=== PATIENT | female | born 1975 | race Caucasian/White ===

== ENCOUNTER 2018-11-20 17:49 | Emergency (ER) | payer BC ==
[2018-11-20 20:32] VITALS: BP 144/84
--- NOTE | 2018-11-20 20:35 | UC ---
Abdominal Pain Female HPI - HPI Summary HPI Summary: Pt with urinary frequency, urgency and dysuria starting yesterday, but progressive since midafternoon. no fever, chills. no back pain No n/v. No vaginal discharge, itch, odor. Pt took pyridium [employer] with start of improvement no apap, motrin not medications reviewed - History of Current Complaint Chief Complaint: UCGU Stated Complaint: URINARY COMPLAINT Time Seen by Provider: 11/20/18 20:27 Hx Obtained From: Patient Hx Last Menstrual Period: current ?: No Onset/Duration: Gradual Onset Pain Intensity: 5 Allergies/Adverse Reactions: Allergies Allergy/AdvReac Type Severity Reaction Status Date / Time No Known Allergies Allergy Verified 11/20/18 20:31 Home Medications: Home Medications Phenazopyridine TAB* [Pyridium 100 mg TAB*] 100 mg PO TID 11/20/18 [History Confirmed 11/20/18] PMH/Surg Hx/FS Hx/Imm Hx Previously Healthy: Yes - Surgical History Surgical History: None - Family History Known Family History: Positive: Non-Contributory - Social History Occupation: Employed Full-time Lives: With Family Alcohol Use: Weekly Substance Use Type: None Smoking Status (MU): Former Smoker Review of Systems All Other Systems Reviewed And Are Negative: Yes Constitutional: Positive: Negative Genitourinary: Positive: Dysuria, Frequency, Urgency Physical Exam - Summary Physical Exam Summary: Vital Signs Reviewed: Yes A+Ox3, no distress Eyes: Conjunctiva Clear, MARY. EOM intact and full ENT: Hearing grossly normal TM x 2 clear, mmoist, uvula midline, no exudate, no erythema Neck: Positive: Supple Respiratory: Positive: No respiratory distress, No accessory muscle use + CTA throughout no w/r Cardiovascular: RRR nl s1, s2 no m/r CBT <2 sec abd soft + BS nt/nd no guarding, no distension no CVA Musculoskeletal Exam: COREAS x 4 without difficulty Strength Intact, ROM Intact Neurological: Positive: Alert, + sensation throughout Psychological: Positive: Normal Response To Family Skin: Positive: no rash, no ecchymosis Triage Information Reviewed: Yes Vital Signs: Initial Vital Signs Temp 98.2 F 11/20/18 20:27 Pulse 70 11/20/18 20:27 Resp 18 11/20/18 20:27 BP 144/84 11/20/18 20:27 Pulse Ox 98 11/20/18 20:27 Abd Pain Female Course/Dx - Course Course Of Treatment: progressive frequency, urgent, dysuria. no hematuria. no back pain, nausea. no vaginal discharge. pt took pyridium. will culture urine. treat presumptively. slight increase BP - recommend PCP follow-up - Differential Dx/Diagnosis Provider Diagnosis: Dysuria Discharge - Sign-Out/Discharge Documenting (check all that apply): Patient Departure All imaging exams completed and their final reports reviewed: No Studies - Discharge Plan Condition: Stable Disposition: HOME Prescriptions: Nitrofurantoin Monohyd/M-Cryst [Macrobid 100 mg Capsule] 100 mg PO BID #14 cap Patient Education Materials: Urinary Tract Infection in Women (ED) Referrals: Kyara ROSE,Evens Hess [Primary Care Provider] - Additional Instructions: - stay well hydrated - drink plenty of non-alcoholic, non caffinated beverages - your urine will be further tested - if you require any changes to your treatment, we will contact you - this usually take 2 days - Contact your primary doctor to arrange a follow-up appointment next week. Contact your doctor or return with questions or concerns - Take your antibiotics exactly as prescribed until gone - Take pyridium as prescribed for discomfort. This will make your urine blaze orange - this is normal - Okay to alternate ibuprofen (Advil, Motrin) and Tylenol every 3 hours for pain. Take with food - Call your doctor or return with questions or concerns - Billing Disposition and Condition Condition: STABLE Disposition: Home
[2018-11-20] MEDS ORDERED: Nitrofurantoin Macrocrystals* 50 MG CAP PO ONE (20:42)
== END 2018-11-20 20:57 | disposition home or self-care (01) ==
LOC: UCCORT 17:49
DX: R30.0 Dysuria (principal); R35.0 Frequency of micturition; Z87.891 Personal history of nicotine dependence
CPT/HCPCS: 87086; 99212; A9270-GY; G0463

== ENCOUNTER 2020-01-11 07:01 | Emergency (ER) | payer BC | END 2020-01-11 07:45 | disposition home or self-care (01) | LOC: UCCORT 07:01 | DX: N39.0 Urinary tract infection, site not specified (principal) | CPT/HCPCS: 87086; 99212; G0463 ==